=== PATIENT | male | born 1945 | race Caucasian/White ===

== ENCOUNTER 2022-04-23 18:37 | Inpatient (IN) | payer MEDICARE ==
[~2022-04-23] VITALS: Ht 22.9 cm; Wt 102.0 kg
--- NOTE | 2022-04-23 19:52 | NUR ---
DIRECT ADMIT FROM HOME. PT A&OX4. FAMILY AT BEDSIDE. VERY SUPPORTIVE. BILAT OPEN WOUNDS TO FEET. DENIES PAIN. CALL LIGHT IN REACH. BED ALARM SET.
[2022-04-23 20:05] VITALS: BP 140/54; PULSE 96; TEMP 97.6
[2022-04-23] MEDS ORDERED: EPA FISH OIL1 SGL PO (21:28)
[2022-04-23] MEDS ORDERED: ICAPS TABLET1 EACH PO (21:29)
[2022-04-23] MEDS ORDERED: ASPIRIN 81M81 MG/TA2 PO (21:31)
[2022-04-23] MEDS ORDERED: SYNTHROID0.075 MG/T PO (21:32)
[2022-04-23] MEDS ORDERED: PEPCID 20MG TAB20 MG PO (21:34)
[2022-04-23] MEDS ORDERED: VASOTEC 5MG5 MG/TAB PO (21:35)
[2022-04-23] MEDS ORDERED: TENORMIN 5050 MG/TAB PO (21:36)
[2022-04-23 21:59] LABS: MEAN CELL VOLUME 82 fl (80.0-100.0); MEAN CORPUSCULAR HGB CONC 32 g/dl (33.0-37.0); MEAN PLATELET VOLUME 8.9 fl (7.4-10.4); PLATELET COUNT 400 K/mm3 (130-400); RED BLOOD COUNT 3.52 M/mm3 (4.20-5.60); REDCELL DISTRIBUTION WIDTH-CV 16.1 % (11.5-14.5)
[2022-04-23 22:03] LABS: HEMATOCRIT 28.7 % (42.0-52.0); HEMOGLOBIN 9.2 g/dl (13.5-18.0); MEAN CORPUSCULAR HEMOGLOBIN 26 pg (27-31)
[2022-04-23 22:13] LABS: ALBUMIN 2.1 gm/dL (3.4-4.8); BILIRUBIN,TOTAL 1.6 mg/dL (0.2-1.2); C-REACTIVE PROTEIN 20.17 mg/dL (0.00-0.50); CALCIUM 8.8 mg/dL (8.4-10.2); CREATININE, serum 0.63 mg/dL (0.72-1.25); POTASSIUM 3.3 mmol/L (3.5-4.5); TOTAL PROTEIN 6.9 gm/dL (6.2-8.1)
[2022-04-23 22:26] LABS: ANISOCYTOSIS 1+; BAND 15 % (0-10); HYPOCHROMIA 1+; LYMPHOCYTE 2 % (20.0-51.0); MICROCYTOSIS 1+; NEUTROPHILS 83 % (42.0-75.2); PLATELET ESTIMATE NORMAL (NORMAL)
[2022-04-23 22:30] LABS: ERYTHROCYTE SEDIMENTATION RATE > 140 mm/hr (0-30)
[2022-04-23 23:08] VITALS: BP 110/59; PULSE 100; TEMP 98.3
--- NOTE | 2022-04-23 23:30 | NUR ---
Vancomycin Initial Dosing Pharmacy Note Ordering provider: Rios Burroughs MD Indication/duration: Osteomyelitis of toes x7 days Relevant comorbidities: HTN LABS: WBC = 11.4, SCr = 0.63 (Capped at 0.7), X-Ray concerning for osteo. Recommendation: Will draw troughs and follow levels. Loading dose: 2 grams Maintenance dose: 1.5 grams every 12 hours Trough goal: 15-20 ug/mL
--- NOTE | 2022-04-23 23:34 | NUR ---
EFFER-K 20MEQ WITH JUICE GIVEN FOR K+ 3.3. K PROTOCOL STARTED.
--- NOTE | 2022-04-24 | NUR ---
RT HERE TO HELP SET UP CPAP MACHINE.
[2022-04-24 03:20] VITALS: BP 107/44; PULSE 82; TEMP 98.7; TEMP 99
--- NOTE | 2022-04-24 06:11 | NUR ---
NOTIFIED ANNIE QUICK OF ORTHO CONSULT.
--- NOTE | 2022-04-24 08:00 | NUR ---
ORTHO ROUNDING AND APPLIED DRESSING TO NECROTIC ULCERS TO BLE. ORTHO RECOMMENDS VASCULAR SPECIALIST AND SPOKE WITH HOSPITALIST ABOUT GETTING PATIENT TRANSFER TO A HIGH LEVEL OF CARE. TRANSFER PENDING ACCEPTANCE TO ANOTHER FACILITY
[2022-04-24 08:07] VITALS: BP 90/51; PULSE 79; TEMP 98.6
[2022-04-24 11:13] VITALS: BP 99/54; TEMP 98.2
--- NOTE | 2022-04-24 11:22 | NUR ---
Radio Station Engineer offered prayer and support with patient while spouse was in room.
--- NOTE | 2022-04-24 12:45 | NUR ---
PATIENT HAS BEEN ACCEPTED TO [facility], WAITING ON EMS TRANSFER TIME. REPAIRER WELDING SYSTEMS AND EQUIPMENT WORKING ON TRANSFER PAPERWORK.
--- NOTE | 2022-04-24 14:35 | NUR ---
EMS IS HERE TO TRANSPORT PATIENT TO [facility]. GAVE INFO PACKET TO EMS. PERSONAL BELONGINGS SENT WITH EMS INCLUDING C-PAP. CALLED REPORT TO RECEIVING RN, ANSWERED QUESTIONS/CONCERNS. PATIENT DISCHARGED.
== END 2022-04-24 14:35 | disposition short-term general hospital (02) | DRG 541 ==
LOC: SURG 18:37
PROVIDERS: Student in an Organized Health Care Education/Training Program; ADMIT Internal Medicine
DX: M86.8X7 Other osteomyelitis, ankle and foot (principal); I73.9 Peripheral vascular disease, unspecified; G62.9 Polyneuropathy, unspecified; I10 Essential (primary) hypertension; E78.5 Hyperlipidemia, unspecified; K21.9 Gastro-esophageal reflux disease without esophagitis; L97.529 Non-pressure chronic ulcer of other part of left foot with unspecified severity; L97.519 Non-pressure chronic ulcer of other part of right foot with unspecified severity; E03.9 Hypothyroidism, unspecified; R73.9 Hyperglycemia, unspecified; Z23 Encounter for immunization; Z86.718 Personal history of other venous thrombosis and embolism; Z79.890 Hormone replacement therapy; Z79.82 Long term (current) use of aspirin
CPT/HCPCS: J2543; J3370; J7040; J7050

== ENCOUNTER → 2022-04-23 | Outpatient (CLI) | payer MEDICARE ==
[~2022-04-23] MED LIST: ASPIRIN 81M81 MG/TA2 PO; EPA FISH OIL1 SGL PO; ICAPS TABLET1 EACH PO; PEPCID 20MG TAB20 MG PO; SYNTHROID0.075 MG/T PO; TENORMIN 5050 MG/TAB PO; VASOTEC 5MG5 MG/TAB PO
[2022-04-23 16:35] LABS: MEAN CELL VOLUME 80 fl (80.0-100.0); MEAN CORPUSCULAR HGB CONC 32 g/dl (33.0-37.0); MEAN PLATELET VOLUME 8.7 fl (7.4-10.4); PLATELET COUNT 448 K/mm3 (130-400); RED BLOOD COUNT 3.73 M/mm3 (4.20-5.60); REDCELL DISTRIBUTION WIDTH-CV 16.1 % (11.5-14.5)
[2022-04-23 16:38] LABS: HEMATOCRIT 29.7 % (42.0-52.0); HEMOGLOBIN 9.5 g/dl (13.5-18.0); MEAN CORPUSCULAR HEMOGLOBIN 25 pg (27-31)
[2022-04-23 16:51] LABS: ALBUMIN 2.3 gm/dL (3.4-4.8); BILIRUBIN,TOTAL 1.7 mg/dL (0.2-1.2); C-REACTIVE PROTEIN 22.27 mg/dL (0.00-0.50); CALCIUM 9.1 mg/dL (8.4-10.2); CREATININE, serum 0.6 mg/dL (0.72-1.25); POTASSIUM 3.5 mmol/L (3.5-4.5); TOTAL PROTEIN 7.6 gm/dL (6.2-8.1)
[2022-04-23 17:00] LABS: ERYTHROCYTE SEDIMENTATION RATE > 140 mm/hr (0-30)
[2022-04-23 17:13] LABS: BAND 5 % (0-10); EOSINOPHIL 1 % (0-4); LYMPHOCYTE 12 % (20.0-51.0); NEUTROPHILS 78 % (42.0-75.2)
[2022-04-23 17:14] LABS: ANISOCYTOSIS 1+; MICROCYTOSIS 1+; PLATELET ESTIMATE NORMAL (NORMAL); POLYCHROMASIA 1+; TARGET CELLS 1+
== END ==
LOC: COL.LAB 15:51
PROVIDERS: Family Medicine
DX: S91.301A Unspecified open wound, right foot, initial encounter (principal); X58.XXXA Exposure to other specified factors, initial encounter

== ENCOUNTER → 2022-06-17 | Outpatient (CLI) | payer MEDICARE ==
[2022-06-17 13:11] LABS: HEMATOCRIT 39.5 % (42.0-52.0); HEMOGLOBIN 12.6 g/dl (13.5-18.0); MEAN CELL VOLUME 84 fl (80.0-100.0); MEAN CORPUSCULAR HEMOGLOBIN 27 pg (27-31); MEAN CORPUSCULAR HGB CONC 32 g/dl (33.0-37.0); MEAN PLATELET VOLUME 9.5 fl (7.4-10.4); PLATELET COUNT 334 K/mm3 (130-400); RED BLOOD COUNT 4.72 M/mm3 (4.20-5.60)
[2022-06-17 13:26] LABS: ALBUMIN 4.1 gm/dL (3.4-4.8); BILIRUBIN,TOTAL 0.5 mg/dL (0.2-1.2); CREATININE, serum 0.76 mg/dL (0.72-1.25); POTASSIUM 3.4 mmol/L (3.5-4.5); TOTAL PROTEIN 8.4 gm/dL (6.2-8.1)
== END ==
LOC: COL.LAB 11:50
PROVIDERS: Family Medicine
DX: R14.0 Abdominal distension (gaseous) (principal)

== ENCOUNTER → 2022-07-23 | Outpatient (REF) | payer MEDICARE ==
[~2022-07-23] MED LIST changes: +ASPIRIN E.C. 8181 MG PO; +K-DUR20 MEQ PO; +KLOR-CON SPRIN10 MEQ PO; +LASIX 40MG TABL40 MG PO; +MAG-OX 400400 MG/TAB PO; +TYLENOL 500MG500 MG PO
== END ==
LOC: ZCOL.LAB 16:52
DX: T81.49XA Infection following a procedure, other surgical site, initial encounter (principal)

== ENCOUNTER 2023-03-08 20:32 | Inpatient (IN) | payer MEDICARE ==
[~2023-03-08] VITALS: Ht 175.3 cm; Wt 100.3 kg
[~2023-03-08 20:32] MED LIST changes: +K-TAB20 PO; +LASIX 20MG TABL20 MG PO
[2023-03-08 21:16] LABS: BASO % 0.2 % (0.0-2.0); EOS # 0.1 K/mm3 (0.0-0.7); EOS % 1.1 % (0.0-4.0); GRAN # 3.3 K/mm3 (1.4-6.5); GRAN % 70.6 % (42.2-75.2); LYMPH # 0.9 K/mm3 (1.2-3.4); LYMPH % 18.6 % (20.0-51.0); MEAN CELL VOLUME 85 fl (80.0-100.0); MEAN CORPUSCULAR HEMOGLOBIN 27 pg (27-31); MEAN CORPUSCULAR HGB CONC 32 g/dl (33.0-37.0); MEAN PLATELET VOLUME 10.1 fl (7.4-10.4); MONO # 0.4 K/mm3 (0.1-0.6); MONO % 9.1 % (1.7-9.3); PLATELET COUNT 241 K/mm3 (130-400); RED BLOOD COUNT 4.12 M/mm3 (4.20-5.60); REDCELL DISTRIBUTION WIDTH-CV 15.6 % (11.5-14.5)
[2023-03-08 21:21] LABS: HEMATOCRIT 34.9 % (42.0-52.0)
[2023-03-08 21:35] LABS: ALBUMIN 3.6 gm/dL (3.4-4.8); BILIRUBIN,TOTAL 0.3 mg/dL (0.2-1.2); CALCIUM 10.1 mg/dL (8.4-10.2); CREATININE, serum 0.66 mg/dL (0.72-1.25); POTASSIUM 5.4 mmol/L (3.5-4.5); TOTAL PROTEIN 7.7 gm/dL (6.2-8.1)
[2023-03-08 22:11] LABS: TROPONIN-I 0.015 ng/mL (0.00-0.033); TSH w REFLEX 6.389 uIU/mL (0.350-4.940)
[2023-03-08 22:38] LABS: COLLECTION METHOD CATHETER; PH 5.5 (5.0-8.5); URINE APPEARANCE Clear (CLEAR/HAZY); URINE BLOOD Negative (NEGATIVE); URINE COLOR Yellow (YELLOW); URINE GLUCOSE Negative (NEGATIVE); URINE KETONE Negative (NEGATIVE); URINE NITRATE Negative (NEGATIVE); URINE PROTEIN(semi-quant) Negative (NEGATIVE); URINE UROBILINOGEN 0.2 E.U/dL (0.2-1.0); URINE WBC 0-2 /hpf (0-2)
[2023-03-08 22:39] LABS: MUCOUS Present (NOT PRESENT); SQUAMOUS EPITHELIAL 0-2 /hpf (0-10); URINE BACTERIA Rare /hpf (NONE SEEN); URINE RBC 0-2 /hpf (0-2)
[2023-03-09] VITALS (1228 sets, daily range): BP systolic 84–132; BP diastolic 46–77; PULSE 56–105; TEMP 94.3–99.7; O2SAT 63–100
[2023-03-09] MEDS ORDERED: LASIX 40MG TABL40 MG PO (01:02)
[2023-03-09 01:41] LABS: INR 1.2 (0.8-3.0); PROTHROMBIN TIME 12.5 SECONDS (9.7-12.8)
[2023-03-09] MEDS ORDERED: LASIX 20MG TABL20 MG PO (02:09)
[2023-03-09 03:28] LABS: CALCIUM 8.6 mg/dL (8.4-10.2); CREATININE, serum 0.57 mg/dL (0.72-1.25); POTASSIUM 4.6 mmol/L (3.5-4.5)
--- NOTE | 2023-03-09 05:46 | NUR ---
77 yo male admitted secondary to profound hypothermia; severe sepsis of unclear etiology can not be ruled out. ht 175.3 cm wt 97.7 kg SCr 0.66 with estimated CrCl >60 ml/min half life 10.9 hours Plan: Patient received an initial loading dose of vancomycin 2000 mg x1 in the ED (20.5 mg/kg); will follow with a maintenance regimen of vancomycin 1500 mg q12h to target a goal trough of 15-20 mcg/ml. Will follow patient's renal function, micro data, and vancomycin levels as indicated to assess for any necessary changes to regimen. Thank you for this dosing consult.
--- NOTE | 2023-03-09 07:00 | NUR ---
Report received from BLAIR Lorenzana. Pt alert and oriented but slow to respond; somewhat lethargic. Luke hugger in place due to hypothermia. Rectal temp probe in place but not accurate. Order received from Dr. Farmer for temp mina. Chronic wounds to BLE; weeping serous drainage. Pt offers no complaints at this time. Call light in reach and bed alarm on.
[2023-03-09 07:28] LABS: BASO % 0.2 % (0.0-2.0); EOS % 0.5 % (0.0-4.0); GRAN # 5.7 K/mm3 (1.4-6.5); GRAN % 86.1 % (42.2-75.2); HEMOGLOBIN 10.1 g/dl (13.5-18.0); LYMPH # 0.5 K/mm3 (1.2-3.4); LYMPH % 7.7 % (20.0-51.0); MEAN CELL VOLUME 84 fl (80.0-100.0); MEAN CORPUSCULAR HEMOGLOBIN 27 pg (27-31); MEAN CORPUSCULAR HGB CONC 32 g/dl (33.0-37.0); MEAN PLATELET VOLUME 10.8 fl (7.4-10.4); MONO # 0.3 K/mm3 (0.1-0.6); MONO % 4.9 % (1.7-9.3); PLATELET COUNT 241 K/mm3 (130-400); RED BLOOD COUNT 3.78 M/mm3 (4.20-5.60); REDCELL DISTRIBUTION WIDTH-CV 15.7 % (11.5-14.5)
[2023-03-09 07:32] LABS: HEMATOCRIT 31.6 % (42.0-52.0)
[2023-03-09 07:40] LABS: CREATININE, serum 0.59 mg/dL (0.72-1.25); MAGNESIUM 1.9 mg/dL (1.6-2.6)
--- NOTE | 2023-03-09 10:17 | NUR ---
Initial visit; Patient thanked Publishing Editor for looking in on him and offering God's blessings and keeping him in her prayers.
[2023-03-09 10:35] LABS: CREATINE KINASE 93 U/L (30-200); LIPASE 27 U/L (8-78)
--- NOTE | 2023-03-09 17:45 | NUR ---
hops farmworker met with patient to discuss discharge planning. Patient appeared fairly sleepy but was able to express he lives in [place] with his Monica and his PCP was [facility] but recently switched. Patient was able to report his pharmacy is [facility]. Patient requested the social media strategist speak with his about the other questions. SW met with patient's , Monica, P# [phone], and daughter, Daisy, P# [phone] in the ICU waiting room. Monica confirmed patient switched PCPs to Dr. Carlton. Insurance is Medicare [employer]. Patient has a DPOA-HC and Monica is primary and she believes Martina (daughter) is secondary. Patient has a cane, CPAP, FWW, grab bars and shower chair at home. Patient has needed more assistance at home that previously. His assists him in and out of the shower and she monitors his wounds on his legs because Monica and Daisy both stated that he does not keep track of how they are healing and if they need to have medical care. Patient previously used [facility] for home health services. Monica was open to home health services if patient was stable to return home at time of discharge specifically for PT and nursing. SW expressed they would continue to follow his care and assist with the necessary services at time of discharge.
[2023-03-09 18:54] LABS: T3 TOTAL 63 ng/dL (35-193)
[2023-03-10] VITALS (790 sets, daily range): BP systolic 102–137; BP diastolic 61–67; PULSE 65–96; TEMP 94.2–98.7; O2SAT 56–100
[2023-03-10 05:50] LABS: BASO % 0.2 % (0.0-2.0); EOS % 0.7 % (0.0-4.0); GRAN # 2.6 K/mm3 (1.4-6.5); GRAN % 62.8 % (42.2-75.2); LYMPH # 1.1 K/mm3 (1.2-3.4); LYMPH % 26.1 % (20.0-51.0); MEAN CELL VOLUME 82 fl (80.0-100.0); MEAN CORPUSCULAR HGB CONC 32 g/dl (33.0-37.0); MEAN PLATELET VOLUME 10.5 fl (7.4-10.4); MONO # 0.4 K/mm3 (0.1-0.6); PLATELET COUNT 180 K/mm3 (130-400); RED BLOOD COUNT 3.44 M/mm3 (4.20-5.60); REDCELL DISTRIBUTION WIDTH-CV 15.9 % (11.5-14.5)
[2023-03-10 06:06] LABS: ALBUMIN 2.6 gm/dL (3.4-4.8); BILIRUBIN,TOTAL 0.5 mg/dL (0.2-1.2); CALCIUM 8.4 mg/dL (8.4-10.2); CREATININE, serum 0.65 mg/dL (0.72-1.25); POTASSIUM 3.6 mmol/L (3.5-4.5); TOTAL PROTEIN 5.9 gm/dL (6.2-8.1)
[2023-03-10 06:13] LABS: HEMATOCRIT 28.3 % (42.0-52.0); HEMOGLOBIN 9.1 g/dl (13.5-18.0); MEAN CORPUSCULAR HEMOGLOBIN 26 pg (27-31)
--- NOTE | 2023-03-10 07:00 | NUR ---
Report received from BLAIR Lucas. Pt had no events overnight. Was able to be taken off of levophed gtt and did not require chrissy hugger. Pt alert and oriented this AM. No s/s discomfort. Call light in reacha and bed alarm on.
--- NOTE | 2023-03-10 15:13 | NUR ---
REPORT GIVEN TO BLAIR MENA. PT TAKEN TO MEDICAL ROOM 352 BY BLAIR CASTELLANO. PT HAS ALL BELONINGS IN HIS POSSESSION AT TIME OF TRANSFER; PHONE, [email or web address] BAG WITH CLOTHES, LEGAL FINANCIAL SPECIALIST, AND CPAP MACHINE.
--- NOTE | 2023-03-10 16:05 | NUR ---
PATIENT ARRIVED TO UNIT AN ICU TRANSFER. AXOX4. AT BEDSIDE. PATIENT HAS A PELAYO CATHETER FOR RETENTION. VSS, BUT WAS UNABLET TO GET AN ORAL OR AXILLARY TEMP READING. USED A RECTAL THERMOMETER AND GOT 95.6*f. NOTIFIED PROVIDER OF LOW TEMPS, AWARE. PLACED WARMING BLANKETS AROUND PATIENT AND WILL RECHECK WITHIN THE HOUR. PATIENT IS COMFORTABLE, NOT COMPLAINING OF ANY PAIN. NEEDS A WALKER TO GET UP AND TRANSFER TO THE BEDSIDE COMMODE. ASSESSMENT COMPLETE.
--- NOTE | 2023-03-10 17:16 | NUR ---
PLACED HEATED BLANKETS ON PATIENT. RECHECKED TEMP AND IT WAS 95.6*f. APPLIED [employer] WARMING DEVICE, WILL RECHECK TEMPERATURE IN AN HOUR. PATIENT IS RESTING IN BED AXOX4 WITH AT BEDSIDE.
--- NOTE | 2023-03-10 18:25 | NUR ---
PATIENT IS CURRENTLY WEARING JASPAL HUGGER AT 43*c, PLACED AT 1700. PATIENT TEMPERATURE RECHECKED, STILL RESTING AT 95*F. NOTIFIED PHYISICAN OF PATIENT STATUS. WANTS PATIENT TO STAY IN THE JASPAL HUGGER OVERNIGHT.
--- NOTE | 2023-03-10 18:26 | NUR ---
RECEIVED CALLED FROM [facility]. PATIENT NOTED TO HAVE A RUN OF AFIB WITH [facility]. FAXED STRIP UP AND PLACED IN PATIENTS CHART. NURSING NOTIFIED PROVIDER. ORDERED 12 LEAD EKG. PATIENT RESTING IN BED.
--- NOTE | 2023-03-10 19:30 | NUR ---
Patient resting in bed. Denies any pain or needs at this time. Bear hugger in place for low temps. Assessment complete. IV in left hand flushes easily with no complications. PICC in right upper arm flushes easily with good blood return from both ports. Call light and personal items in reach. Bed in low position and bed alarm on.
[2023-03-11 03:23] VITALS: BP 109/65; PULSE 94; TEMP 97.9
--- NOTE | 2023-03-11 05:30 | NUR ---
Patient resting in bed. Denies any pain or needs this morning. Paitent is able to hold a body temp of 97.9 with the bear hugger on the lowest setting majority of the evening. No other changes over night. Call light and personal items in reach. Bed in low position and bed alarm on.
[2023-03-11 06:45] LABS: BASO % 0.2 % (0.0-2.0); EOS # 0.1 K/mm3 (0.0-0.7); EOS % 1.4 % (0.0-4.0); GRAN # 4.4 K/mm3 (1.4-6.5); GRAN % 66.6 % (42.2-75.2); LYMPH # 1.4 K/mm3 (1.2-3.4); LYMPH % 21.5 % (20.0-51.0); MEAN CELL VOLUME 85 fl (80.0-100.0); MEAN CORPUSCULAR HGB CONC 31 g/dl (33.0-37.0); MEAN PLATELET VOLUME 10.4 fl (7.4-10.4); MONO # 0.6 K/mm3 (0.1-0.6); MONO % 9.7 % (1.7-9.3); PLATELET COUNT 176 K/mm3 (130-400); RED BLOOD COUNT 3.53 M/mm3 (4.20-5.60); REDCELL DISTRIBUTION WIDTH-CV 15.9 % (11.5-14.5)
[2023-03-11 06:48] LABS: HEMATOCRIT 29.9 % (42.0-52.0); HEMOGLOBIN 9.4 g/dl (13.5-18.0); MEAN CORPUSCULAR HEMOGLOBIN 27 pg (27-31)
[2023-03-11 07:07] LABS: ALBUMIN 2.8 gm/dL (3.4-4.8); BILIRUBIN,TOTAL 0.5 mg/dL (0.2-1.2); CHOLESTEROL RISK RATIO 2.7; CREATININE, serum 0.72 mg/dL (0.72-1.25); POTASSIUM 3.9 mmol/L (3.5-4.5); TOTAL PROTEIN 6.3 gm/dL (6.2-8.1)
[2023-03-11 07:35] VITALS: BP 99/64; PULSE 87; TEMP 97.7
[2023-03-11 12:08] VITALS: BP 130/67; PULSE 87; TEMP 97.5
--- NOTE | 2023-03-11 15:22 | NUR ---
manager workers compensation and Student Cathryn met with pt and , Clau at bedside to discuss discharge planning. SW stated that PT/OT are reccomending SNF vs HH. Patient reports they have used [facility] and would like to continue with them. SW said she will send them updates. SW Student Cathryn faxed HH referral to [facility]. Discharge Plan: Home with [facility]
[2023-03-11 15:37] VITALS: BP 106/62; PULSE 77; TEMP 97.3
--- NOTE | 2023-03-11 16:47 | NUR ---
merchandise worker recieved a call from Claire and [facility]. She reports that they decline pt due to having private duty and "safety concerns." SW questioned if the family has used them before. Claire reports she will speak to her team, but they have concerns that they cannot care for themselves. FABIAN said private duty or cargivers were not mentioned to this SW. FABIAN stated that the PT/OT reccomendation was HH vs SNF. Claire reports she will get back to FABIAN after speaking with her team more for details.
[2023-03-11 18:59] VITALS: BP 120/63; PULSE 90; TEMP 97.5
[2023-03-11 23:33] VITALS: BP 104/64; PULSE 58; TEMP 98
[2023-03-12 03:05] VITALS: BP 100/61; PULSE 68; TEMP 97
[2023-03-12 05:59] LABS: BASO % 0.2 % (0.0-2.0); EOS # 0.2 K/mm3 (0.0-0.7); EOS % 4.8 % (0.0-4.0); GRAN # 2.1 K/mm3 (1.4-6.5); GRAN % 47.9 % (42.2-75.2); LYMPH # 1.6 K/mm3 (1.2-3.4); LYMPH % 35.7 % (20.0-51.0); MEAN CELL VOLUME 85 fl (80.0-100.0); MEAN CORPUSCULAR HGB CONC 31 g/dl (33.0-37.0); MEAN PLATELET VOLUME 10.3 fl (7.4-10.4); MONO # 0.5 K/mm3 (0.1-0.6); MONO % 10.7 % (1.7-9.3); PLATELET COUNT 146 K/mm3 (130-400); RED BLOOD COUNT 3.04 M/mm3 (4.20-5.60); REDCELL DISTRIBUTION WIDTH-CV 15.7 % (11.5-14.5)
[2023-03-12 06:04] LABS: HEMATOCRIT 25.9 % (42.0-52.0); MEAN CORPUSCULAR HEMOGLOBIN 26 pg (27-31)
[2023-03-12 06:16] LABS: ALBUMIN 2.4 gm/dL (3.4-4.8); BILIRUBIN,TOTAL 0.5 mg/dL (0.2-1.2); CALCIUM 8.4 mg/dL (8.4-10.2); CREATININE, serum 0.59 mg/dL (0.72-1.25); POTASSIUM 3.4 mmol/L (3.5-4.5); TOTAL PROTEIN 5.4 gm/dL (6.2-8.1)
[2023-03-12 08:00] VITALS: BP 95/59; PULSE 60; TEMP 98
--- NOTE | 2023-03-12 09:30 | NUR ---
Patient is sitting up in bed, alert and oriented, having breakfast. Denies any pain or discomfort. Getting fluids per orders, Telemetry in place, SR. BLE with dressing. Drainage in left lower leg. Dressing to be changed. Assessment completed, meds given. No further needs at this time. Call light within reach.
[2023-03-12 11:56] VITALS: BP 107/63; PULSE 73
[2023-03-12 16:00] VITALS: BP 136/67; PULSE 70; TEMP 96.5
[2023-03-12 19:08] VITALS: BP 142/73; PULSE 65; TEMP 97.4
[2023-03-13] VITALS (12 sets, daily range): BP systolic 90–163; BP diastolic 55–75; PULSE 52–78; TEMP 96.5–97.6
--- NOTE | 2023-03-13 05:30 | NUR ---
ASSESSMENT COMPLETE FOR GLUE MIXER. PT DENIED GENERAL PAIN, CHEST PAIN, PALPITATIONS, SOB, N,V,D OR DIZZINESS. PT HAD SOME LOWER TEMP READINGS FOR AID. TEMPS RECHECKED BY ME. TEMPS UPON RECHECK BETWEEN 97.3 TO 97.5. BEAR HUGGER PLACED ON PT TO HELP PT MAINTAIN HIS TEMP JUST TO BE ON THE SAFE SIDE. WILL CONTINUE TO MONITOR AND PASS ON TO DAYSHIFT RN. FALL PRECAUTIONS IN PLACE. CALL LIGHT WITHIN REACH.
--- NOTE | 2023-03-13 07:15 | NUR ---
BEDSIDE REPORT COMPLETED. PATIENT AWAKE AND ALERT, SITTING UP IN BED. BEAR HUGGAR IN PLACE, PATIENT CURRENT TEMP 96.6, BEAR-HUGGER ON.CALL LIGHT WITHIN REACH, PATIENT DENIES ANY NEEDS OR COMPLAINTS AT THIS TIME.
--- NOTE | 2023-03-13 08:30 | NUR ---
PATIENT ASSISTED TO THE RECLINER BY PT. PATIENTS CURRENT TEMP IS 97.6. BEAR HUGGER NOT ON AT THIS TIME. PATIENTS CALL LIGHT WITHIN REACH, FALL PRECAUTIONS IN PLACE,
--- NOTE | 2023-03-13 12:36 | NUR ---
PATIENT TEMP CURRENTLY 96.8, BEAR HUGGER PLACED. NEHAL STILL SITTING UP IN RECLINER AT THIS TIME, EATING LUNCH.
--- NOTE | 2023-03-13 15:07 | NUR ---
BRENNA WADE STILL ON- PATIENT TEMP 97.7 AT THIS TIME
--- NOTE | 2023-03-13 16:31 | NUR ---
PATIENT SITTING UP IN THE RECLINER. PATIENT BLE DRESSING CHANGES COMPLETED ORDERED. PATIENTS AT BEDSIDE. PATIENT DENIES ANY FURTHER NEEDS OR COMPLAINTS AT THIS TIME. BEAR-JASONER STILL ON
[2023-03-14] VITALS (7 sets, daily range): BP systolic 110–152; BP diastolic 62–96; PULSE 57–77; TEMP 96.7–97.7
[2023-03-14 06:23] LABS: BASO % 0.2 % (0.0-2.0); EOS # 0.3 K/mm3 (0.0-0.7); EOS % 7.2 % (0.0-4.0); GRAN # 2.1 K/mm3 (1.4-6.5); GRAN % 43.3 % (42.2-75.2); LYMPH # 1.7 K/mm3 (1.2-3.4); MEAN CELL VOLUME 84 fl (80.0-100.0); MEAN CORPUSCULAR HGB CONC 32 g/dl (33.0-37.0); MEAN PLATELET VOLUME 10.7 fl (7.4-10.4); MONO # 0.6 K/mm3 (0.1-0.6); MONO % 12.2 % (1.7-9.3); PLATELET COUNT 132 K/mm3 (130-400); RED BLOOD COUNT 3.29 M/mm3 (4.20-5.60); REDCELL DISTRIBUTION WIDTH-CV 15.5 % (11.5-14.5)
[2023-03-14 06:34] LABS: HEMATOCRIT 27.6 % (42.0-52.0); HEMOGLOBIN 8.9 g/dl (13.5-18.0); MEAN CORPUSCULAR HEMOGLOBIN 27 pg (27-31)
[2023-03-14 06:56] LABS: CALCIUM 8.7 mg/dL (8.4-10.2); CREATININE, serum 0.65 mg/dL (0.72-1.25); MAGNESIUM 1.8 mg/dL (1.6-2.6); POTASSIUM 3.7 mmol/L (3.5-4.5)
--- NOTE | 2023-03-14 08:00 | NUR ---
PATIENT RESTING IN BED UPON ENTERING ROOM, AMBULATES WITH ASSISTANCE TO SIT IN RECLINER. SHIFT ASSESSMENT COMPLETED. PATIENT DENIES ANY PAIN. PICC LINE FLUSHES AND HAS BLOOD RETURN. CALL LIGHT WITHIN REACH, BED ALARM IN PLACE. PATIENT UPDATED ON PLAN OF CARE.
--- NOTE | 2023-03-14 14:38 | NUR ---
THIS RN REMOVED PATIENT'S PELAYO AT THIS TIME, AND ASPIRATED 9 mL FROM BALLOON. IVF DISCONTINUED. DRESSING CHANGE TO BLE COMPLETED AT THIS TIME. ABDOMINAL PADS PLACED OVER GAUZE SITES AND WRAPPED WITH KERLIX.
--- NOTE | 2023-03-14 15:38 | NUR ---
poultry farm worker was informed by Dr. Burroughs to send patient for IPR review. SW informed Director Jordyn. She is reviewing pt and discussed with family. FABIAN spoke with Claire at [facility] who declines patient for Home Health services due to feeling as though they require private duty services to be safe in the home. Discharge Plan: IPR review
[2023-03-15] VITALS (11 sets, daily range): BP systolic 114–163; BP diastolic 60–81; PULSE 56–72; TEMP 97.1–97.7
--- NOTE | 2023-03-15 05:20 | NUR ---
Patient had an uneventful night. Denied pain/nausea/shortness of breath. VS remained stable. Dressing to bilat lower extremity remained CDI. Voiding without difficulty post mina removal yesterday. CPAP@HS. PICC to right upper arm flushes well with good blood return. AM labs drawn without difficulty. Maintained temp without bear hugger. Denies current questions/concerns. Call light in reach. Will monitor.
--- NOTE | 2023-03-15 06:45 | NUR ---
Oksana report given to BLAIR Hughes.
[2023-03-15 07:19] LABS: BASO % 0.4 % (0.0-2.0); EOS # 0.3 K/mm3 (0.0-0.7); EOS % 6.2 % (0.0-4.0); GRAN # 2.5 K/mm3 (1.4-6.5); GRAN % 47.1 % (42.2-75.2); LYMPH # 1.8 K/mm3 (1.2-3.4); LYMPH % 32.8 % (20.0-51.0); MEAN CELL VOLUME 88 fl (80.0-100.0); MEAN CORPUSCULAR HGB CONC 30 g/dl (33.0-37.0); MEAN PLATELET VOLUME 11.5 fl (7.4-10.4); MONO # 0.7 K/mm3 (0.1-0.6); MONO % 12.4 % (1.7-9.3); PLATELET COUNT 153 K/mm3 (130-400); RED BLOOD COUNT 3.21 M/mm3 (4.20-5.60); REDCELL DISTRIBUTION WIDTH-CV 15.7 % (11.5-14.5)
[2023-03-15 07:21] LABS: HEMATOCRIT 28.1 % (42.0-52.0); HEMOGLOBIN 8.5 g/dl (13.5-18.0); MEAN CORPUSCULAR HEMOGLOBIN 26 pg (27-31)
[2023-03-15 07:33] LABS: CALCIUM 9.1 mg/dL (8.4-10.2); CREATININE, serum 0.61 mg/dL (0.72-1.25); POTASSIUM 3.6 mmol/L (3.5-4.5)
--- NOTE | 2023-03-15 10:37 | NUR ---
Dressing change complete. Small amount of serous fluid on dressings. Denies pain. Patient awake, alert and oriented, weak but able to ambulate with x1 assist with walker. Denies shortness of breath or nausea. In chair, call light within reach, chair alarm on.
--- NOTE | 2023-03-15 13:49 | NUR ---
powder worker tnt was inform IPR has put in for authorization on patient. Discharge Plan: IPR auth pending
[2023-03-15 17:57] LABS: ADRENOCORTICOTROPIC HORMONE 22 pg/mL (5-27)
--- NOTE | 2023-03-15 20:00 | NUR ---
UPON SHIFT ASSESSMENT, GRACIE WAS UP IN BEDSIDE CHAIR EATING DINNER. HE HAD HIS DAUGHTER AND IN THE ROOM. HE IS AXO X 3 AND VS ARE WNL, TELE IS NS. BILATERAL EXTREMITIES ARE EDEMENOUS AND RED WITH WEEPY BLISTERS AND TAUNT RED SHINY SKIN. PULSES ARE PALPABLE BUT DIFFICULT TO FIND. GRACIE HAD QUESTIONS ABOUT LAD RESULTS AND THIS NURSE REVEALED MICROBIOLOGY REPORT. LUNG SOUNDS CLEAR AND PATIENT DENIES SOA, HOWEVER FINE CRACKLES WERE AUDIBLE IN UPPER LOBES AND CLEARED WITH BOTH.
[2023-03-16] VITALS (13 sets, daily range): BP systolic 105–149; BP diastolic 63–678; PULSE 57–82; TEMP 96.5–98.2
--- NOTE | 2023-03-16 08:22 | NUR ---
Patient is resting in bed, alert and oriented x 4, assisted to the restroom. Meds provided, refuses miralax and sennosides. BLE red, wounds covered, CDI. Telemetry in place. Assessment completed. No further needs at this time. Call light within reach.
--- NOTE | 2023-03-16 09:04 | NUR ---
Pt PICC line not flushing any port. Dr. Burroughs stated he wants pt to go with PICC line to IPR. Reported to [facility] nurse, chest x ray ordered.
--- NOTE | 2023-03-16 09:11 | NUR ---
Patient is in the chair, temperature was recheck, 97.4
--- NOTE | 2023-03-16 14:32 | NUR ---
garden worker was informed by RN that pt requests a notary. SW recieved a call from Halie kee inquiring about a notary service for some personal documents. SW called Willie Rodríguez and informed her of the request. FABIAN spoke with the family and they stated the form is a transfer of property to a sibling. FABIAN saw daughter, Halie in the [place] who inquired again. FABIAN advised she informed the notary to meet with them. IPR Authorization still pending. Discharge Plan: IPR pending
--- NOTE | 2023-03-16 16:17 | NUR ---
Patient sleeping in chair, awakes easily. Legs elevated. Dressing changed on BLE. ABD and Kerlex applied. Clean socks placed.
--- NOTE | 2023-03-16 20:30 | NUR ---
Initial shift assessment done- sitting up in recliner/alarm on, Bilateral lower legs wrapped w/kerlix, denies pain at this time, Tele on, PICC to JOSE, unable to flush the purple port-- red flushes sluggish, bruises to arms, call light in reach, no requests.
[2023-03-17] VITALS (11 sets, daily range): BP systolic 109–164; BP diastolic 53–75; PULSE 55–75; TEMP 96.7–98.6
--- NOTE | 2023-03-17 06:30 | NUR ---
This nurse took over care of patient at 0330. Denies having pain and discomfort this morning. Wearing home CPAP. Voices no no questions, needs, or concerns at this time. In bed with call light within reach. High fall risk precautions in place. Bed alarm on.
--- NOTE | 2023-03-17 13:41 | NUR ---
mill worker was informed pt was declined for IPR, but both the family and IPR Director Jordyn have put in an appeal that can take up to 72 hours. FABIAN spoke with Dr. Ventura and family during rounding regarding another plan if it is declined again. FABIAN and reported SNF would be the best option for pt. Pt was hesitant at first, but was willing to accept a place that was not [facility] as they believe he did not get much therapy. They would be interested in [facility]. FABIAN provided the Medicare.gov list of SNF agencies. SW went over how [facility] felt as though they needed private duty in the home to be safe. The family did not speak on this topic. FABIAN spoke with [facility] who reports they might have a bed available tomorrow, but cannot guarantee. FABIAN cannot submit for facilities until IPR appeal is completed. Discharge Plan: IPR appeal pending
--- NOTE | 2023-03-17 22:22 | NUR ---
Patient assessed around 2029. Alert and oriented, and able to make needs known. Denies having pain and discomfort. PICC to RUE. Denies SOB and dyspnea. LS CTA in upper lobes, diminished in lower. Wears home CPAP at night. HRR. BSAx4. 3+ edema to RLE, dressing with yellow drainage. Changed per orders. 2+ edema to LLE, dressing changed withe yellow drainage, not as much as RLE. Voices no further questions, needs, or concerns at this time. In recliner with call light within reach. High fall risk precautions in place.
[2023-03-18] VITALS (12 sets, daily range): BP systolic 100–163; BP diastolic 65–75; PULSE 60–78; TEMP 95.7–97.6
--- NOTE | 2023-03-18 05:57 | NUR ---
Patient has denied having pain and discomfort this shift. Wearing CPAP. Voices no questions, needs, or concerns at this time. In bed with call light within reach. High fall risk precautions in place.
--- NOTE | 2023-03-18 11:57 | NUR ---
FABIAN Student faxed Skilled authorization to [facility] (fax#[phone]) due to their system being down. FABIAN Student also faxed SNF referrals to [facility] and [facility]. Discharge Plan: SNF
--- NOTE | 2023-03-18 13:40 | NUR ---
DRESSING CHANGE COMPLETE. PATIENT IS TO HAVE MEPITEL STICKY CLEAR DRESSING PLACED ON BILATERAL LEG WOUNDS EVERY SEVEN DAY PER WOUND CARE TEAM NURSING NOTE. WOUNDS WERE CLEANSED AND MEPITEL WAS CHANGED TODAY BY NURSING AT 1330. MEPITEL NEEDS TO BE REPLACED IF SOILED, FALLING OFF IMMEDITATELY, BUT OTHERWISE CAN STAY ON UNTIL MAR 25, 2023 (TUESDAY) MEPITEL DRESSINGS ARE LOCATED IN THE ICU. THEY ARE NOT AVAILABLE ON THE [facility] FLOOR.
--- NOTE | 2023-03-18 15:40 | NUR ---
landing worker was informed IPR appeal was denied for pt. SW was informed by IPR Director Jordyn that the family chose [facility] and [facility] for SNF. SW faxed referrals to both choices. SW submitted for [facility]. SW was informed by Rudy that they can accept, pending auth. SW was informed by Naz at [facility] that they can meet pt's needs, but it depends on bed availbility. FABIAN recieved a call from [facility] that it appears pt is walking 140 ft and this exceeds the threshold. FABIAN deliberated with representatives. Rep reports she would send it to the Doctor to review, who will then make a decision or offer P2P. This can occur over the weekend. Discharge Plan: tbd
--- NOTE | 2023-03-18 16:28 | NUR ---
foundry worker spoke with , Monica over the phone about the insurance decision. Monica and pt had a lot of questions and frustrations regarding this. FABIAN provided a Dr. will review and potentially offer to speak with the Hospitalist. SW went to speak with pt and in the room to provide HH list. Monica confirmed they use [facility] for private duty services, mainly for transportation and bringing in groceries. SW stated how HH is different and the reccomended services by therapy. They were agreeable to review and inform SW of their decision tomorrow morning. FABIAN provided she will be here tomorrow and could follow up with pt. Medicare.gov list of HH services provided. Discharge Plan:tbd
[2023-03-19] VITALS (7 sets, daily range): BP systolic 92–163; BP diastolic 48–74; PULSE 60–68; TEMP 96.8–97.6
--- NOTE | 2023-03-19 09:00 | NUR ---
PATIENT AWAKE AND ALERT, SITITNG UP IN BED. HE DENEIS ANY COMPLAINTS OR PAIN AT THIS TIME. PATIENTS CALL LIGHT WITHIN REACH, AT BEDSIDE.
[2023-03-19 09:15] LABS: BASO % 0.3 % (0.0-2.0); EOS # 0.4 K/mm3 (0.0-0.7); EOS % 6.8 % (0.0-4.0); GRAN % 46.8 % (42.2-75.2); LYMPH # 2.3 K/mm3 (1.2-3.4); LYMPH % 35.9 % (20.0-51.0); MEAN CELL VOLUME 86 fl (80.0-100.0); MEAN CORPUSCULAR HGB CONC 30 g/dl (33.0-37.0); MEAN PLATELET VOLUME 11.1 fl (7.4-10.4); MONO # 0.6 K/mm3 (0.1-0.6); MONO % 9.3 % (1.7-9.3); PLATELET COUNT 245 K/mm3 (130-400); RED BLOOD COUNT 3.72 M/mm3 (4.20-5.60); REDCELL DISTRIBUTION WIDTH-CV 16.1 % (11.5-14.5)
[2023-03-19 09:18] LABS: CALCIUM 9.5 mg/dL (8.4-10.2); CREATININE, serum 0.62 mg/dL (0.72-1.25); POTASSIUM 4.3 mmol/L (3.5-4.5)
[2023-03-19 09:22] LABS: HEMATOCRIT 32.1 % (42.0-52.0); HEMOGLOBIN 9.7 g/dl (13.5-18.0); MEAN CORPUSCULAR HEMOGLOBIN 26 pg (27-31)
--- NOTE | 2023-03-19 09:30 | NUR ---
LAB CALLED REGARDING LOW BLOOD SUGAR. LABS ARE DRAWN USUALLY AN HOUR TO TWO HOURS BEFORE THEY ARE TAKEN DOWN AND RAN. THIS PATIENT WAS ALREADY UP IN HIS CHAIR, EATING BREAKFAST. CURRENT BLOOD SUGAR IN THE 90S, PATIENT WITHOUT ANY COMPLAINTS.
[2023-03-19] MEDS ORDERED: LASIX 20MG TABL20 MG PO (09:36)
--- NOTE | 2023-03-19 09:51 | NUR ---
roller shop utility worker called [facility] [employer] regarding auth for SNF. They informed SW that it still needed to be reveiwed by their DrMateo and could provide no estimated time. FABIAN spoke with pt and , Monica at bedside to discuss options. Pt and looked over HH and would like either [facility] or [facility]. FABIAN provided she will discuss with Dr. Sabine Ventura and see what she reccomends. Dr. Ventura was agreeable to discharge today with HH orders. FABIAN spoke with family and they were agreeable to Home Health, instead of waiting until Tuesday at latest for a decision on SNF. SW faxed a referral to [facility]. reports she will coordinate a ride for this afternoon. FABIAN spoke with Josef at [facility] who confirms they accept pt and can try to see him tomorrow, but more likely Tuesday. SW faxed discharge orders. Discharge Plan: Home today with [facility]
--- NOTE | 2023-03-19 11:39 | NUR ---
DRESSING CHANGE COMPLETED
--- NOTE | 2023-03-19 11:48 | NUR ---
PICC LINE REMOVED AT THIS TIME BY THIS RN. PRESSURE HELD FOR 5 MINUTES, PATIENT IS COMPLETING FLAT TIME. DRESSING IS C/D/I.
--- NOTE | 2023-03-19 14:00 | NUR ---
PATIENT GIVEN DISCHARGE INSTRUCTIONS AND EDUCAITION. NO NEEDS OR COMPLAINTS AT THIS TIME. PATIENT PICC REMOVAL SITE DRESSING CDI. PATIENT TAKEN VIA WHEELCHAIR BY PCT TO ER ENTRANCE WHERE HE LEFT INSTABLE OCNDITION WITH HIS .
== END 2023-03-19 14:20 | disposition home or self-care (01) | DRG 871 ==
LOC: COL.ER 20:32 → ICU 03-09 00:34 → MEDICAL 03-10 15:00
PROVIDERS: Emergency Medicine; Internal Medicine; Internal Medicine Pulmonary Disease; Nurse Practitioner Family; Personal Emergency Response Attendant; Physician Assistant; ADMIT Internal Medicine
PROC: 02HV33Z Insertion of Infusion Device into Superior Vena Cava, Percutaneous Approach (ICD-10-PCS; principal; 2023-03-09)
DX: A41.9 Sepsis, unspecified organism (principal); J96.01 Acute respiratory failure with hypoxia; R65.21 Severe sepsis with septic shock; G72.81 Critical illness myopathy; D64.9 Anemia, unspecified; E87.5 Hyperkalemia; E03.9 Hypothyroidism, unspecified; R91.1 Solitary pulmonary nodule
CPT/HCPCS: A4314; A9284; C1751; C1892; J1650; J1720; J2543; J3370; J7040; J7042; J7050; J7060; J7120; Q9967

== ENCOUNTER 2023-08-02 08:07 | Day surgery (SDC) | payer MEDICARE ==
[~2023-08-02] VITALS: Ht 175.3 cm; Wt 97.2 kg
[2023-08-02] VITALS (9 sets, daily range): BP systolic 11–111; BP diastolic 56–75; PULSE 67–82; TEMP 97.8
[2023-08-02] MEDS ORDERED: 1/2 NS 1,000 ML IV SCH ×2 (08:30→12:45)
[2023-08-02] MEDS ORDERED: VASOTEC 5MG5 MG/TAB PO (09:40)
--- NOTE | 2023-08-02 10:18 | NUR ---
Refer to [facility] report for procedural sedation/notes
[2023-08-02] MEDS ORDERED: Midazolam 2 MG/2 ML VIAL IV SCH (10:27)
[2023-08-02] MEDS ORDERED: Iohexol 350 - 100 ML VIAL INCOR ONE (10:28)
[2023-08-02] MEDS ORDERED: Nitroglycerin 100 MCG/ML (Cath Lab) 10 ML VIAL IA SCH (10:28)
[2023-08-02] MEDS ORDERED: Verapamil 2.5 MG/ML 2 ML VIAL IV SCH (10:29)
[2023-08-02] MEDS ORDERED: Heparin 1,000 UNITS/ML 10 ML Multi-Dose VIAL IA SCH (10:30)
[2023-08-02] MEDS ORDERED: fentaNYL 50 MCG/ML 2 ML VIAL IV SCH (10:30)
--- NOTE | 2023-08-02 10:55 | NUR ---
Pt back to EU12 - bedside handoff performed with BLAIR Knox. Vitals initiated and stable, rt radial and rt groin access sites assessed and stable - dressings CDI. Call light in reach. Family not in waiting room or pt room.
--- NOTE | 2023-08-02 12:13 | NUR ---
Right femoral site dressing clean, dry, and intact. Site is soft to the touch.
--- NOTE | 2023-08-02 12:16 | NUR ---
right femoral site dressing clean, dry, and intact. Site soft to the touch.
--- NOTE | 2023-08-02 12:21 | NUR ---
Femoral site dressing is clean, dry, and intact. Site is soft to the touch.
--- NOTE | 2023-08-02 12:23 | NUR ---
Femoral site dressing is clean, dry, and intact. Site is soft to the touch.
--- NOTE | 2023-08-02 12:26 | NUR ---
Femoral site dressing is clean, dry, and intact. Site is soft to the touch.
--- NOTE | 2023-08-02 13:06 | NUR ---
Right femoral site dressing clean, dry, and intact. Site soft to the touch.
--- NOTE | 2023-08-02 13:10 | NUR ---
Right femoral site is clean, dry, and intact. Site is soft to the touch. Pt is being transferred to [facility]. 6mls of air released from the TR band at the time of departure.
--- NOTE | 2023-08-02 14:13 | NUR ---
Pt ambulated with a walker to 12 with a weak gait, accompanied by and daughter. Pts scheduled for a C. EKG done. IV started, labs drawn. Meds and HX reviewed with the pt. Consent for the procedure signed. Pt was taken to laborer tree tapping for the procedure.Post procedure the pt was [facility]. Caban talked with the pt about needing to be transferred to [facility] for further care. Pt expressed their understanding. Pt was kept NPO in case they were needing surgery once they arrived to [facility]. The pts right radial site and right femoral groin site was assessed, both were clean, dry, and intact. Pt was to remain bedrest until 1430. Report to [facility] called at 1230, the nurse requested a call back once the pt had left and how much air was in the TR band at time of transfer. 2 hrs into the recovery air was taken out of the radial band. 2mls of air about every 15 mins, 6 mls of air was taken out before EMS arrived to transport the pt. As air was released no bleeding occured, site remained clean. EMS arrived around 1255, report given to EMS. No further questions. Pt was transported over to the stretcher. IV remained intact with fluids running. Pt exited the unit at 1305 accompanied by EMS. Update called to [facility].
== END 2023-08-02 13:05 | disposition short-term general hospital (02) ==
LOC: COL.CAR 08:07
DX: I25.10 Atherosclerotic heart disease of native coronary artery without angina pectoris (principal); I25.82 Chronic total occlusion of coronary artery; I10 Essential (primary) hypertension; Z86.718 Personal history of other venous thrombosis and embolism
CPT/HCPCS: J1644; J2250; J3010; Q9967

== ENCOUNTER → 2023-11-25 | Outpatient (CLI) | payer MEDICARE | LOC: COL.RAD 08:48 | DX: I25.10 Atherosclerotic heart disease of native coronary artery without angina pectoris (principal); T17.990A Other foreign object in respiratory tract, part unspecified in causing asphyxiation, initial encounter ==